=== PATIENT | female | born 1965 | race Caucasian/White ===

== ENCOUNTER → 2020-11-24 | Outpatient (CLI) | payer BC | LOC: PLD 15:04 → LAB SHORT 15:04 | DX: D48.5 Neoplasm of uncertain behavior of skin (principal); L57.0 Actinic keratosis; D22.9 Melanocytic nevi, unspecified; L82.1 Other seborrheic keratosis | CPT/HCPCS: 88305 ==

== ENCOUNTER → 2021-06-23 | Outpatient (CLI) | payer BC | LOC: LAB SHORT 12:01 → LAB 12:01 | DX: D48.5 Neoplasm of uncertain behavior of skin (principal) | CPT/HCPCS: 88305 ==

== ENCOUNTER → 2021-12-24 | Outpatient (CLI) | payer BC ==
[2021-12-29 19:11] LABS: HPV 16 Negative (Negative); HPV 18 Negative (Negative); HPV OTHER HR TYPES Negative (Negative)
== END | disposition home or self-care (01) ==
LOC: LAB SHORT 08:40
PROVIDERS: Family Medicine
DX: Z01.419 Encounter for gynecological examination (general) (routine) without abnormal findings (principal)
CPT/HCPCS: 87624; G0145

== ENCOUNTER → 2021-12-29 | Outpatient (CLI) | payer BC | END | disposition home or self-care (01) | LOC: PLD 11:31 → LAB SHORT 11:31 | DX: D48.5 Neoplasm of uncertain behavior of skin (principal) | CPT/HCPCS: 88305 ==

== ENCOUNTER → 2024-11-22 | Outpatient (CLI) | payer OTHER ==
[2024-11-22 09:43] LABS: Source, Urine Clean Catch
[2024-11-22 12:04] LABS: White Blood Cells, Urine 0-2 /hpf (0-5)
[2024-11-22 12:05] LABS: Bacteria Rare /hpf; Squamous Epithelial Cells Not Seen /hpf (Few)
== END | disposition home or self-care (01) ==
LOC: LAB SHORT 09:42 → LAB 09:42
PROVIDERS: Family Medicine
DX: R31.29 Other microscopic hematuria (principal)
CPT/HCPCS: 81015